=== PATIENT | female | born 1945 | race Caucasian/White ===

== ENCOUNTER 2017-10-04 11:34 | Emergency (ER) | payer MEDICARE ==
[2017-10-04 12:42] VITALS: BP 158/99
--- NOTE | 2017-10-04 13:20 | UC ---
Respiratory Complaint HPI - HPI Summary HPI Summary: Pt presents with dry cough for the last 4 days. She tells me that she has a history of COPD and get bronchitis at least once a year. She does not have any inhalers that she uses. Has not been taking anything OTC. Denies fever, chills, SOB, chest pain, abdominal pain, n/v/d/c. - History of Current Complaint Chief Complaint: UCRespiratory Stated Complaint: URI Time Seen by Provider: 10/04/17 13:20 Hx Obtained From: Patient ?: No Onset/Duration: Gradual Onset Severity Initially: Moderate Severity Currently: Moderate Pain Intensity: 6 Pain Scale Used: 0-10 Numeric Character: Cough: Nonproductive - Allergies/Home Medications Allergies/Adverse Reactions: Allergies Allergy/AdvReac Type Severity Reaction Status Date / Time aspirin Allergy Hives Verified 10/04/17 12:43 muscle relaxers Allergy Swelling Uncoded 11/09/13 18:25 PMH/Surg Hx/FS Hx/Imm Hx Previously Healthy: Yes Cardiovascular History: Hypertension Respiratory History: COPD - Surgical History Surgical History: Yes Surgery Procedure, Year, and Place: left lung collapse; hysterrectomy; deviated septum; appe - Family History Known Family History: Positive: Unknown - Social History Occupation: Retired Lives: With Family Alcohol Use: Rare Substance Use Type: None Smoking Status (MU): Former Smoker Type: Cigarettes Have You Smoked in the Last Year: No When Did the Patient Quit Smoking/Using Tobacco: 25 yrs ago - Immunization History Most Recent Tetanus Shot: within past 12 mos Review of Systems Constitutional: Negative Skin: Negative Eyes: Negative ENT: Negative Respiratory: Cough Cardiovascular: Negative Gastrointestinal: Negative Neurological: Negative Psychological: Negative All Other Systems Reviewed And Are Negative: Yes Physical Exam - Summary Physical Exam Summary: GENERAL: Mildly ill appearing. NAD. WDWN. No pain distress. SKIN: No rashes, sores, ulcers, masses, lesions. No clubbing or cyanosis. HEENT: Head: AT/NC Eyes: Conjunctiva clear without inflammation or discharge. Ears: Hearing grossly normal. TMs intact, no bulging, erythema, or edema. Nose: Nasal mucosa pink and moist. NTTP maxillary and frontal sinus. Throat: Posterior oropharynx without exudates, erythema, or tonsillar enlargement. Uvula midline. NECK: Supple. Nontender. No lymphadenopathy. CHEST: Mild wheezing throughout. CTAB. No r/r. No accessory muscle use. Breathing comfortably and in no distress. CV: RRR. Without m/r/g. Pulses intact. Brisk cap refill. NEURO: Alert. CN II-XII grossly intact. PSYCH: Age appropriate behavior. Triage Information Reviewed: Yes Vital Signs: Initial Vital Signs Temp 99.5 F 10/04/17 12:40 Pulse 79 10/04/17 12:40 Resp 18 10/04/17 12:40 BP 158/99 10/04/17 12:40 Pulse Ox 97 10/04/17 12:40 Diagnostic Evaluation - Laboratory O2 Sat by Pulse Oximetry: 97 Respiratory Course/Dx - Course Course Of Treatment: Given her hx of COPD, will cover her with azithromycin and rx for an albuterol inhaler. - Differential Dx/Diagnosis Provider Diagnoses: Bronchitis Discharge - Discharge Plan Condition: Stable Disposition: HOME Prescriptions: Albuterol HFA INHALER* [Ventolin HFA Inhaler*] 2 puff INH Q6H PRN #1 mdi PRN Reason: Cough Azithromycin TAB* [Zithromax TAB (Z-VALARIE) 250 mg #6 tabs] 2 tab PO .TODAY, THEN 1 DAILY #1 valarie Patient Education Materials: Acute Bronchitis (ED) Referrals: Ti Dsouza DO [Primary Care Provider] - Additional Instructions: If you develop a fever, shortness of breath, chest pain, new or worsening symptoms - please call your PCP or go to the ED. Your blood pressure was high at todays visit. Please see your primary provider within 4 weeks for recheck and re-evaluation.
== END 2017-10-04 13:44 | disposition home or self-care (01) ==
LOC: UCEAST 11:34
DX: J44.9 Chronic obstructive pulmonary disease, unspecified (principal); I10 Essential (primary) hypertension; Z88.6 Allergy status to analgesic agent; Z88.8 Allergy status to other drugs, medicaments and biological substances; Z87.891 Personal history of nicotine dependence
CPT/HCPCS: 99212; G0463

== ENCOUNTER 2019-10-02 10:04 | Emergency (ER) | payer MEDICARE ==
--- NOTE | 2019-10-02 10:20 | ED ---
Hypertension - HPI Summary HPI Summary: Patient is a 74 y/o F presenting to the ED for a chief complaint of hypertension that began the night of 10/01/19. Patient states that she had a parietal headache that began around 17:00 on 10/01/19 and she checked her blood pressure, noticing that her blood pressure was high. On 10/02/19, her blood pressure remained high and she had lightheadedness, numbness and paresthesia in the bilateral UE, so she called her PCP, Dr. Dsouza, who recommended she be seen at [facility] for further assessment. Currently, patient also complains of dry mouth for the last few weeks and pressure in her chest which she states she typically has, and which she attributes to a history of COPD. Patient denies vision changes, one-sided weakness, chest pain, or shortness of breath. She took Advil for her headache with relief. No aggravating factors are noted. Generally, she has similar symptoms during hypertensive episodes. PMHx is significant for thyroid disease and COPD. She is a former smoker, quitting 40 years ago. She admits rare alcohol use, about once a year. Patient denies dosage changes for any medications. Medications reviewed. Allergies noted. - History of Current Complaint Chief Complaint: EDHypertension Stated Complaint: HIGH BLOOD PRESSURE 183/98 Time Seen by Provider: 10/02/19 10:10 Hx Obtained From: Patient Onset/Duration: Started Hours Ago, Atraumatic, Still Present Timing: Constant Aggravating Factor(s): Nothing Alleviating Factor(s): Nothing Associated Signs & Symptoms: Headaches, Numbness - Bilateral UE, Tingling - Bilateral UE - Allergies/Home Medications Allergies/Adverse Reactions: Allergies Allergy/AdvReac Type Severity Reaction Status Date / Time aspirin Allergy Hives Verified 10/02/19 10:09 muscle relaxers Allergy Swelling Uncoded 10/02/19 10:09 Home Medications: Home Medications Albuterol HFA INHALER* [Ventolin HFA Inhaler*] 2 puff INH Q6H PRN #1 mdi [Rx Confirmed 10/02/19] Fluticasone/Vilanterol MDI(NF) [Breo Ellipta MDI 200/25(NF)] 1 puff INH DAILY [History Confirmed 10/02/19] Levothyroxine Sodium 50 mg PO SEE INSTRUCTIONS 10/02/19 [History Confirmed 10/02] Levothyroxine Sodium 75 mg PO SEE INSTRUCTIONS 10/02/19 [History Confirmed 10/02] amLODIPine TAB* [Norvasc 5 mg TAB*] 5 mg PO DAILY 30 Days #30 tab 10/02/19 [Rx] lisinopriL [Lisinopril] 10 mg PO DAILY 10/02/19 [History Confirmed 10/02/19] PMH/Surg Hx/FS Hx/Imm Hx Previously Healthy: Yes Endocrine/Hematology History: Reports: Hx Thyroid Disease Denies: Hx Diabetes Cardiovascular History: Reports: Hx Hypertension Denies: Hx Pacemaker/ICD Respiratory History: Reports: Hx Chronic Obstructive Pulmonary Disease (COPD) Denies: Hx Asthma History: Denies: Hx Renal Disease Sensory History: Denies: Hx Legally Blind, Hx Deafness, Hx Hearing Aid Opthamlomology History: Denies: Hx Legally Blind EENT History: Denies: Hx Deafness Psychiatric History: Denies: Hx Panic Disorder - Cancer History Hx Chemotherapy: No Hx Radiation Therapy: No - Surgical History Surgical History: Yes Surgery Procedure, Year, and Place: RIGHT LUNG X2 FIXED WITH TUBE INSERTS ONLY; . LEFT LUNG HAD TO HAVE SURGERY FOR THE COLLAPSED LUNG;. HYSTERECTOMY AND APPENDECTOMY;. DEVIATED SEPTUM; Infectious Disease History: No Infectious Disease History: Denies: History Other Infectious Disease, Traveled Outside the [place] in Last 30 Days - Family History Known Family History: Negative: Diabetes - Social History Occupation: Retired Lives: With Family Alcohol Use: Rare Hx Substance Use: No Substance Use Type: Reports: None Hx Tobacco Use: Yes Smoking Status (MU): Former Smoker Type: Cigarettes Have You Smoked in the Last Year: No Review of Systems Negative: Other - Negative vision changes Positive: Other - Positive dry mouth Positive: Other - Positive chest pressure, at baseline. Negative: Chest Pain Negative: Shortness Of Breath Neurological/Mental Status: Other - Positive lightheadedness Positive: Headache - Parietal, Paresthesia - Bilateral UE, Numbness - Bilateral UE. Negative: Weakness - One-sided All Other Systems Reviewed And Are Negative: Yes Physical Exam - Summary Physical Exam Summary: Constitutional: Well-developed, Well-nourished, Alert. (-) Distressed Skin: Warm, Dry HENT: Normocephalic; Atraumatic Eyes: Conjunctiva normal Neck: Musculoskeletal ROM normal neck. (-) JVD, (-) Stridor, (-) Tracheal deviation Cardio: Rhythm regular, rate normal, Heart sounds normal; Intact distal pulses; Radial pulses are 2+ and symmetric. (-) Murmur Pulmonary/Chest wall: Effort normal. (-) Respiratory distress, (-) Wheezes, (-) Rales Abd: Soft, (-) tenderness, (-) Distension, (-) Guarding, (-) Rebound Musculoskeletal: (-) Edema Lymph: (-) Cervical adenopathy Neuro: Alert, Oriented x3. NIH Stroke Scale: 0. Psych: Mood and affect Normal Triage Information Reviewed: Yes Vital Signs On Initial Exam: Initial Vitals Temp Pulse Resp BP Pulse Ox 98.1 F 84 15 202/121 96 10/02/19 10:06 10/02/19 10:06 10/02/19 10:06 10/02/19 10:06 10/02/19 10:06 Vital Signs Reviewed: Yes Procedures - Sedation Patient Received Moderate/Deep Sedation with Procedure: No Diagnostics - Vital Signs Vital Signs Temp Pulse Resp BP Pulse Ox 10/02/19 10:06 98.1 F 84 15 202/121 96 - Laboratory Result Diagrams: 10/02/19 10:23 10/02/19 10:23 Lab Statement: Any lab studies that have been ordered have been reviewed, and results considered in the medical decision making process. - EKG 10:15 Cardiac Rate: NL - 85 BPM EKG Rhythm: Sinus Rhythm ST Segment: Normal Ectopy: None Summary of EKG Findings: EKG at 10:15 shows normal sinus rhythm with 85 BPM, 1 PVC, incomplete RBBB, Q waves in the anterior leads, no STEMI. Reviewed and interpreted by Dr. Connell. Re-Evaluation - Re-Evaluation First Eval Re-Evaluation Time: 11:51 Change: Improved Comment: At 11:51, patient is feeling better. We discussed a follow up with her PCP to adjust her medications. Hypertension Course/Dx - Course Course Of Treatment: Patient is here with hypertension. Patient is on lisinopril 10 mg every day for high blood pressure. Last night, patient did have a headache but currently is near asymptomatic. Patient feels a little lightheaded. Patient has no chest pain, change in vision, neurologic deficits. Patient had an EKG performed which showed evidence of ischemia. Patient had normal kidney function on exam. Patient is given 5 mg of amlodipine with improvement in her symptoms. Given patient's uncontrolled high blood pressure, patient was started on amlodipine. Patient follow-up with her primary care doctor this week for medication readjustment and blood pressure recheck. - Diagnoses Provider Diagnoses: Hypertension, Lightheaded Discharge ED - Sign-Out/Discharge Documenting (check all that apply): Patient Departure - Discharge - Discharge Plan Condition: Stable Disposition: HOME Prescriptions: amLODIPine TAB* [Norvasc 5 mg TAB*] 5 mg PO DAILY 30 Days #30 tab Patient Education Materials: Hypertension (ED) Referrals: Ti Dsouza DO [Primary Care Provider] - Additional Instructions: PLEASE RETURN TO EMERGENCY DEPARTMENT FOR ONE-SIDED WEAKNESS, SLURRED SPEECH, CHEST PAIN, TROUBLE BREATHING, OR ANY NEW OR WORSENING SYMPTOMS. Please follow up with your primary care physician. Please make all follow-ups in 1-3 days unless I advise you otherwise. Take your medications as prescribed. Follow up with your primary care physician in the next week to adjust your medications. - Billing Disposition and Condition Condition: STABLE Disposition: Home - Attestation Statements Document Initiated by Jesúsibe: Yes Documenting Scribe: Sandra Palacio Provider For Whom Jazmine is Documenting (Include Credential): Sancho Connell MD Scribe Attestation: Sandra Varner, scribed for Sancho Connell MD on 10/02/19 at 1557. Scribe Documentation Reviewed: Yes Provider Attestation: The documentation as recorded by the Sandra medina accurately reflects the service I personally performed and the decisions made by , Sancho Connell MD Status of Scribe Document: Viewed NIH Scale - NIH Scale Level of Consciousness: Alert/Keenly Responsive Ask Patient the Month and His/Her Age: Both Correct Ask Pt to Open/Close Eyes and Knockup Worker/Release Non-Paretic Hand: Both Correctly Best Gaze (Only Horizontal Eye Movement): Normal Visual Field Testing: No Visual Loss Facial Paresis-Pt to Smile & Close Eyes or Grimace Symmetry: Normal/Symmetrical Motor Function - Right Arm: No Drift-Holds 10 Seconds Motor Function - Left Arm: No Drift-Holds 10 Seconds Motor Function - Right Leg: No Drift-Holds 10 Seconds Motor Function - Left Leg: No Drift-Holds 10 Seconds Limb Ataxia-Must be out of Proportion to Weakness Present: Absent Sensory (Use Pinprick to Test Arms/Legs/Trunk/Face): Normal Best Language (Describe Picture, Name Items): No Aphasia Dysarthria (Read Several Words): Normal Extinction and Inattention: No Abnormality Total Score: 0
[2019-10-02] MEDS ORDERED: amLODIPine TAB* 5 MG PO ONE (10:29)
--- OUTSIDE RECORDS SUMMARY | 2019-10-02 10:37 | XMS REPORT | Continuity of Care Document ---
:1945 External Reference #:[id number] Author Name Ti Dsouza D.O. Address [address] [place] [id number] Care Team Providers Name Role Phone HCP given Care Team Information Filter Bed Placer Unavailable Problems Active Problems Provider Date Benign essential hypertension Ti Dsouza D.O. Onset: 02/26/2015 Hypothyroidism Ti Dsouza D.O. Onset: 02/26/2015 Essential hypertension Ti Dsouza D.O. Onset: 08/29/2015 Chronic obstructive lung disease Ti Dsouza D.O. Onset: 08/28/2016 Social History Type Date Description Comments Sex Unknown Cigarette Use Quit 32 Years Ago ETOH Use Rarely consumes alcohol Recreational Drug Use Denies Drug Use Tobacco Use Start: Unknown End: Patient is a former smoker Unknown Smoking Status Reviewed: 08/25/19 Patient is a former smoker Exercise Type/Frequency Exercises sporadically Sun Exposure Does not use sunscreen Seat Belt/Car Seat Seat Belt Use - Yes Allergies, Adverse Reactions, Alerts Active Allergies Reaction Severity Comments Date Aspirin Swelling 12/08/2013 Muscle Relaxer swelling 12/08/2013 Azithromycin GI, severe diarrhea 09/10/2017 Soy 08/20/2018 Hydrochlorothiazide Itching Mild 11/04/2018 Medications Active Medications SIG Qnty Indications Ordering Date Provider Levothyroxine Sodium 1 by mouth every 45tabs Ti Dsouza, 08/25/2019 other day D.O. 75mcg Tablets alternating with 50mcg Levothyroxine Sodium 1 by mouth every 45tabs E03.9 Ti Dsouza, 2018 other day D.O. 50mcg Tablets alternating with 75mg Breo Ellipta 1 puff once a day; 90inh J44.9 Ti Dsouza, 05/24/2019 rinse mouth after D.ORaimundo 200-25mcg/Inh Aerosol use J45.40 Lisinopril 1 by mouth every 90tabs Ti Dsouza D.O. 11/04/2018 10mg Tablets day Vitamin D3 take one capsule by 90caps E55.9 Ti Dsouza D.ORaimundo 2015 5000Unit mouth every day or Capsules 7 tablets once a week Ran-Mag 1 qd Unknown 02/26/2015 500-250mg Tablets Metz 1 po am, 1 po Unknown 12/07/2013 Tablet midday, and 1 po evening. Ningxia 2 oz bid Unknown 12/07/2013 Inner Defense 1 po daily Unknown 12/07/2013 Sulfurzyme 3 po daily Unknown 12/07/2013 History Medications Trelegy Ellipta inhale 1 puff by 28units J44.9 Lianna, 05/24/2019 - mouth daily for Narendra Luke 05/24/2019 100-62.5-25mcg/Inh obstructive lung Aerosol disease rinse mouth after J45.40 Medications Administered in Office Medication SIG Qnty Indications Ordering Provider Date injection, kenalog, 10 mg Ti Dsouza D.O. 08/25/2019 Injection Immunizations CPT Code Status Date Vaccine Lot # [id number] Refused 08/20/2018 Influenza,Unspecified Vital Signs Date Vital Result Comment 08/25/2019 9:48am BP Systolic 140 mmHg BP Diastolic 86 mmHg Height 63 inches 5'3" Weight 167.50 lb BMI (Body Mass Index) 29.7 kg/m2 05/24/2019 10:55am BP Systolic 136 mmHg BP Diastolic 80 mmHg Weight 165.00 lb w/shoes Results Test Acquired Date Facility Test Result H/L Range Note CBC Auto 08/15/2019 [facility] White Blood 4.2 10^3/uL Normal 3.5- 10.8 Diff [phone] Count Red Blood Count 4.75 10^6/uL Normal 3.70-4.87 Hemoglobin 14.4 g/dL Normal 12.0-16.0 Hematocrit 43 % Normal 35-47 Mean Corpuscular Volume 90 fL Normal 80-97 Mean Corpuscular Hemoglobin 30 pg Normal 27-31 Mean Corpuscular HGB Conc 34 g/dL Normal 31-36 Red Cell Distribution Width 15 % Normal 10-15 Platelet Count 282 10^3/uL Normal 150-450 Mean Platelet Volume 8.5 fL Normal 7.4-10.4 Abs Neutrophils 2.7 10^3/uL Normal 1.5-7.7 Abs Lymphocytes 0.8 10^3/uL Low 1.0-4.8 Abs Monocytes 0.4 10^3/uL Normal 0-0.8 Abs Eosinophils 0.2 10^3/uL Normal 0-0.6 Abs Basophils 0.1 10^3/uL Normal 0-0.2 Abs Nucleated RBC 0.0 10^3/uL Granulocyte % 63.7 % Lymphocyte % 19.1 % Monocyte % 10.3 % Eosinophil % 4.9 % Basophil % 2.0 % Nucleated Red Blood Cells % 0.1 Laboratory test 08/15/2019 [facility] TSH (Thyroid 4.97 mcIU/mL Normal 0.34-5.60 finding [phone] Stim Horm) T3 Free 3.10 pg/mL Normal 2.5-3.9 Free T4 (Free Thyroxine) 0.84 ng/dL Normal 0.61-1.12 Basic Metabolic Panel 08/15/2019 [facility] Sodium 140 mmol/L Normal 135-145 [phone] Potassium 4.4 mmol/L Normal 3.5-5.0 Chloride 106 mmol/L Normal 101-111 Co2 Carbon Dioxide 27 mmol/L Normal 22-32 Anion Gap 7 mmol/L Normal 2-11 Glucose 104 mg/dL High 70-100 Blood Urea Nitrogen 18 mg/dL Normal 6-24 Creatinine 1.03 mg/dL High 0.51-0.95 BUN/Creatinine Ratio 17.5 Normal 8-20 Calcium 9.8 mg/dL Normal 8.6-10.3 Egfr Non- 52.1 >60 Egfr 63.0 >60 1 CBC Auto Diff 05/13/2019 [facility] White Blood 4.4 10^3/uL Normal 3.5-10.8 [phone] Count Red Blood Count 4.62 10^6/uL Normal 3.70-4.87 Hemoglobin 13.8 g/dL Normal 12.0-16.0 Hematocrit 42 % Normal 35-47 Mean Corpuscular Volume 90 fL Normal 80-97 Mean Corpuscular Hemoglobin 30 pg Normal 27-31 Mean Corpuscular HGB Conc 33 g/dL Normal 31-36 Red Cell Distribution Width 14 % Normal 10-15 Platelet Count 266 10^3/uL Normal 150-450 Mean Platelet Volume 8.4 fL Normal 7.4-10.4 Abs Neutrophils 2.8 10^3/uL Normal 1.5-7.7 Abs Lymphocytes 0.9 10^3/uL Low 1.0-4.8 Abs Monocytes 0.4 10^3/uL Normal 0-0.8 Abs Eosinophils 0.3 10^3/uL Normal 0-0.6 Abs Basophils 0.0 10^3/uL Normal 0-0.2 Abs Nucleated RBC 0.0 10^3/uL Granulocyte % 64.2 % Lymphocyte % 19.9 % Monocyte % 8.8 % Eosinophil % 6.3 % Basophil % 0.8 % Nucleated Red Blood Cells % 0.2 Laboratory test 05/13/2019 [facility] TSH (Thyroid 0.07 mcIU/mL Low 0.34-5.60 finding [phone] Stim Horm) T3 Free 3.90 pg/mL Normal 2.5-3.9 Free T4 (Free Thyroxine) 1.45 ng/dL High 0.61-1.12 Basic Metabolic Panel 05/13/2019 [facility] Sodium 140 mmol/L Normal 135-145 [phone] Potassium 4.3 mmol/L Normal 3.5-5.0 Chloride 106 mmol/L Normal 101-111 Co2 Carbon Dioxide 28 mmol/L Normal 22-32 Anion Gap 6 mmol/L Normal 2-11 Glucose 100 mg/dL Normal 70-100 Blood Urea Nitrogen 15 mg/dL Normal 6-24 Creatinine 0.99 mg/dL High 0.51-0.95 BUN/Creatinine Ratio 15.2 Normal 8-20 Calcium 10.0 mg/dL Normal 8.6-10.3 Egfr Non- 54.5 >60 Egfr 66.0 >60 2 1 Because ethnic data is not always readily available, this report includes an eGFR for both -Americans and non- Americans. The National Kidney Disease Education Program (NKDEP) does not endorse the use of the MDRD equation for patients that are not between the ages of 18 and 70, are , have extremes of body size, muscle mass, or nutritional status, or are non- or non-. According to the National Kidney Foundation, irrespective of diagnosis, the stage of the disease is based on the level of kidney function: Stage Description GFR(mL/min/1.73 m(2)) 1 Kidney damage with normal or decreased GFR 90 2 Kidney damage with mild decrease in GFR 60-89 3 Moderate decrease in GFR 30-59 4 Severe decrease in GFR 15-29 5 Kidney failure <15 (or dialysis) 2 Because ethnic data is not always readily available, this report includes an eGFR for both -Americans and non- Americans. The National Kidney Disease Education Program (NKDEP) does not endorse the use of the MDRD equation for patients that are not between the ages of 18 and 70, are , have extremes of body size, muscle mass, or nutritional status, or are non- or non-. According to the National Kidney Foundation, irrespective of diagnosis, the stage of the disease is based on the level of kidney function: Stage Description GFR(mL/min/1.73 m(2)) 1 Kidney damage with normal or decreased GFR 90 2 Kidney damage with mild decrease in GFR 60-89 3 Moderate decrease in GFR 30-59 4 Severe decrease in GFR 15-29 5 Kidney failure <15 (or dialysis) Procedures Date Code Description Status 08/25/2019 39369 Inject/Drain Joint/Bursa Major Completed 07/18/2014 42789820 Colonoscopy Completed 08/10/2005 [id number] Mammogram Completed Medical Devices Description No Information Available Encounters Type Date Location Provider Dx Diagnosis Office Visit 08/25/2019 Main Office Ti Dsouza, E03.9 Hypothyroidism, 9:45a D.O. unspecified I10 Essential (primary) hypertension J44.9 Chronic obstructive pulmonary disease, unspecified J45.40 Moderate persistent asthma, uncomplicated E55.9 Vitamin D deficiency, unspecified M25.511 Pain in right shoulder M75.51 Bursitis of right shoulder Z68.29 Body mass index (BMI) 29.0-29.9, adult Office Visit 05/24/2019 10:30a Main Office Ti Dsouza, E03.9 Hypothyroidism, D.O. unspecified I10 Essential (primary) hypertension L50.0 Allergic urticaria J44.9 Chronic obstructive pulmonary disease, unspecified J45.40 Moderate persistent asthma, uncomplicated E55.9 Vitamin D deficiency, unspecified Assessments Date Code Description Provider 08/25/2019 E03.9 Hypothyroidism, unspecified Sopchak, Ti, D.O. 08/25/2019 I10 Essential (primary) hypertension Sopchak, Ti, D.O. 08/25/2019 J44.9 Chronic obstructive pulmonary disease, Sopchak, Ti, D.O. unspecified 08/25/2019 J45.40 Moderate persistent asthma, uncomplicated Sopchak, Ti, D.O. 08/25/2019 E55.9 Vitamin D deficiency, unspecified Sopchak, Ti, D.O. 08/25/2019 M25.511 Pain in right shoulder Sopchak, Ti, D.O. 08/25/2019 M75.51 Bursitis of right shoulder Sopchak, Ti, D.O. 08/25/2019 Z68.29 Body mass index (BMI) 29.0-29.9, adult Sopchak, Ti, D.O. 05/24/2019 E03.9 Hypothyroidism, unspecified Sopchak, Ti, D.O. 05/24/2019 I10 Essential (primary) hypertension Sopzoraidak, Ti, D.O. 05/24/2019 L50.0 Allergic urticaria Sopchak, Ti, D.O. 05/24/2019 J44.9 Chronic obstructive pulmonary disease, Sopchak, Ti, D.O. unspecified 05/24/2019 J45.40 Moderate persistent asthma, uncomplicated Sopchak, Ti, D.O. 05/24/2019 E55.9 Vitamin D deficiency, unspecified Sopchak, Ti, D.O. Plan of Treatment Future Appointment(s):11/24/2019 10:00 am - Sopzoraidak, Ti, D.O. at [facility]/25/2019 - Sopzoraidak, Ti, D.O.E03.9 Hypothyroidism, unspecifiedFollow up:3 months hypothyroid, HTN, right shoulder painI10 Essential (primary) vwspwxjczajfU86.9 Chronic obstructive pulmonary disease, aokccaeqattS08.40 Moderate persistent asthma, ekhvbetldixddT14.9 Vitamin D deficiency, zcmlkvfclwvC99.511 Pain in right wlrewrcjY24.51 Bursitis of right cqlskmnkA12.29 Body mass index (BMI) 29.0-29.9, adult Functional Status Description No Information Available Mental Status Description No Information Available Referrals Description No Information Available
--- OUTSIDE RECORDS SUMMARY | 2019-10-02 10:37 | XMS REPORT | Continuity of Care Document ---
:1945 External Reference #:[id number] Author Name Ti Dsouza D.O. 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 Problems Active Problems Provider Date Benign [...] Ran-Mag 1 qd Unknown 02/26/2015 500-250mg Tablets [place] 1 po am, 1 po Unknown 12/07/2013 [...] Result H/L Range Note CBC Auto 08/15/2019 [facility] White Blood 4.2 10^3/uL Normal 3.5- 10.8 Diff [phone] Count Red Blood Count 4.75 10^6/uL Normal [...] Blood Cells % 0.1 Laboratory test 08/15/2019 [facility] TSH (Thyroid 4.97 mcIU/mL Normal 0.34-5.60 finding [phone] Stim Horm) T3 Free 3.10 pg/mL Normal 2.5-3.9 Free T4 (Free Thyroxine) 0.84 ng/dL Normal 0.61-1.12 Basic Metabolic Panel 08/15/2019 [facility] Sodium 140 mmol/L Normal 135-145 [phone] Potassium 4.4 mmol/L Normal 3.5-5.0 Chloride 106 mmol/L Normal 101-111 Co2 Carbon Dioxide 27 mmol/L Normal 22-32 Anion Gap 7 mmol/L Normal 2-11 Glucose 104 mg/dL High 70-100 Blood Urea Nitrogen 18 mg/dL Normal 6-24 Creatinine 1.03 mg/dL High 0.51-0.95 BUN/Creatinine Ratio 17.5 Normal 8-20 Calcium 9.8 mg/dL Normal 8.6-10.3 Egfr Non- 52.1 >60 Egfr 63.0 >60 1 CBC Auto Diff 05/13/2019 [facility] White Blood 4.4 10^3/uL Normal 3.5-10.8 [phone] Count Red Blood Count 4.62 10^6/uL Normal [...] Blood Cells % 0.2 Laboratory test 05/13/2019 [facility] TSH (Thyroid 0.07 mcIU/mL Low 0.34-5.60 finding [phone] Stim Horm) T3 Free 3.90 pg/mL Normal 2.5-3.9 Free T4 (Free Thyroxine) 1.45 ng/dL High 0.61-1.12 Basic Metabolic Panel 05/13/2019 [facility] Sodium 140 mmol/L Normal 135-145 [phone] Potassium 4.3 mmol/L Normal 3.5-5.0 Chloride 106 [...] dialysis) Procedures Date Code Description Status 08/25/2019 [id number] Inject/Drain Joint/Bursa Major Completed 07/18/2014 63095853 Colonoscopy Completed 08/10/2005 [id number] Mammogram Completed Medical Devices Description No Information [...] of Treatment Future Appointment(s):11/24/2019 10:00 am - Sunitha Dsouzaon, D.O. at [facility]/25/2019 - [place], Ti, D.O.E03.9 Hypothyroidism, unspecifiedFollow up:3 months hypothyroid, HTN, right shoulder painI10 Essential (primary) npkurmrkdehdI60.9 Chronic obstructive pulmonary disease, dediszwhcjxA63.40 Moderate persistent asthma, tnxotyhzkqmgfU60.9 Vitamin D deficiency, ysnysonvkbtB10.511 Pain in right whmkxrbfU92.51 Bursitis of right pwnvjbftP17.29 Body mass index (BMI) 29.0-29.9, adult Functional Status Description No Information Available Mental Status Description No Information Available Referrals Description No Information Available
[2019-10-02 10:38] LABS: ABS Basophils 0.1 10^3/ul (0-0.2); ABS Eosinophils 0.1 10^3/ul (0-0.6); ABS Lymphocytes 0.6 10^3/ul (1.0-4.8); ABS Monocytes 0.5 10^3/ul (0-0.8); ABS Neutrophils 5.5 10^3/ul (1.5-7.7); Eosinophil % 0.9 %; Hematocrit 45 % (35-47); Hemoglobin 15.1 g/dL (12.0-16.0); Lymphocyte % 8.9 %; Mean Corpuscular HGB Conc 34 g/dL (31-36); Mean Corpuscular Hemoglobin 30 pg (27-31); Mean Corpuscular Volume 90 fL (80-97); Mean Platelet Volume 7.5 fL (7.4-10.4); Platelet Count 281 10^3/uL (150-450); Red Blood Count 4.99 10^6 /uL (3.70-4.87); Red Cell Distribution Width 15 % (10-15); White Blood Count 6.7 10^3/uL (3.5-10.8)
[2019-10-02 10:55] LABS: BUN/Creatinine Ratio 13.9 (8-20); Calcium 9.9 mg/dL (8.6-10.3); EGFR African American 64.5 (>60); EGFR Non-African American 53.3 (>60); Potassium 3.7 mmol/L (3.5-5.0)
[2019-10-02 11:37] LABS: TSH (Thyroid Stimulating Horm) 1.74 mcIU/mL (0.34-5.60)
[2019-10-02 11:39] LABS: Free T4 1.2 ng/dL (0.61-1.12)
[2019-10-02 12:47] VITALS: BP 137/108
== END 2019-10-02 12:47 | disposition home or self-care (01) ==
LOC: ED 10:04
DX: I10 Essential (primary) hypertension (principal); R42 Dizziness and giddiness; J44.9 Chronic obstructive pulmonary disease, unspecified; R51 Headache; E03.9 Hypothyroidism, unspecified; Z87.891 Personal history of nicotine dependence; Z88.6 Allergy status to analgesic agent; Z79.890 Hormone replacement therapy; Z79.899 Other long term (current) drug therapy
CPT/HCPCS: 36415; 80048; 84439; 84443; 85025; 93005; 99283; A9270-GY